=== PATIENT | male | born 1970 | race Caucasian/White ===

== ENCOUNTER 2019-10-06 09:04 | Day surgery (SDC) | payer OTHER ==
[~2019-10-06] VITALS: Ht 177.8 cm; Wt 87.9 kg
[~2019-10-06 09:04] MED LIST: FENO48TA13 PO; FISH1000 PO; IBUP800T OR; LIDOCAINE 2% INJ 100 MG/5 ML SDV (FOR ANES.) As Ordered ONE; MULTCAP PO; PROPOFOL 200 MG/20 ML VIAL As Ordered ONE; TRAM50TA2 OR; cholesterol med
[2019-10-06] MEDS: NS 1,000 ML IV SCH ×2 (09:29→09:55)
--- NOTE | 2019-10-06 10:32 | ROOR ---
Patient Name: Jesus Jordan Procedure Date: 10/06/2019 10:08 AM Date of : 1970 Age: 49 Room: [facility] Gender: Male Note Status: Finalized Procedure: Total Colonoscopy to cecum + Bx. Indications: Rectal bleeding, Change in bowel habits Providers: Jose Ramirez MD Referring MD: [facility]heron [facility], Admin., Inder Dillon Md Requesting Provider: Medicines: Monitored Anesthesia Care Complications: No immediate complications. Procedure: Pre-Anesthesia Assessment: - The heart rate, respiratory rate, oxygen saturations, blood pressure, adequacy of pulmonary ventilation, and response to care were monitored throughout the procedure. The Colonoscope was introduced through the anus and advanced to the cecum, identified by appendiceal orifice and ileocecal valve. The colonoscopy was performed without difficulty. The patient tolerated the procedure well. The quality of the bowel preparation was excellent. Findings: The perianal and digital rectal examinations were normal. A localized area of moderately erythematous mucosa was found in the rectum. Biopsies were taken with a cold forceps for histology. No other significant abnormalities were identified in a careful examination of the remainder of the colon. The exam was otherwise without abnormality on direct and retroflexion views. Impression: - Erythematous mucosa in the rectum. Biopsied. - The examination was otherwise normal on direct and retroflexion views. - The exam was otherwise normal to the cecum. Recommendation: - Patient has a contact number available for emergencies. The signs and symptoms of potential delayed complications were discussed with the patient. Return to normal activities tomorrow. Written discharge instructions were provided to the patient. - High fiber diet. - Discharge patient to home. - Use Canasa 1000 mg suppository 1 per rectum QHS. - Await pathology results. - Telephone GI clinic for pathology results in 1 week. - Repeat colonoscopy in 10 years for screening purposes. - Return to referring physician. - Return to my office in 6 weeks. - The findings and recommendations were discussed with the patient's family. Jose Ramirez MD Jose Ramirez MD 10/06/2019 10:31:38 AM Electronically signed by Jose Ramirez MD Number of Addenda: 0 Note Initiated On: 10/06/2019 10:08 AM Estimated Blood Loss: Estimated blood loss: none.
[2019-10-06 10:52] VITALS: BP 119/72
== END 2019-10-06 11:00 | disposition home or self-care (01) ==
LOC: M OPP 09:04
PROVIDERS: ATTEND Internal Medicine Gastroenterology
DX: K62.89 Other specified diseases of anus and rectum (principal); K62.5 Hemorrhage of anus and rectum; R19.4 Change in bowel habit; Z87.891 Personal history of nicotine dependence

== ENCOUNTER → 2020-04-16 | Outpatient (CLI) | payer OTHER ==
[~2020-04-16] MED LIST changes: +CRES40TA PO; -FENO48TA13 PO; +FENO48TA7 PO; -LIDOCAINE 2% INJ 100 MG/5 ML SDV (FOR ANES.) As Ordered ONE; +MESA1000 PR; -PROPOFOL 200 MG/20 ML VIAL As Ordered ONE
== END ==
LOC: M LABSMTC 13:45
PROVIDERS: ATTEND Anesthesiology
DX: Z03.818 Encounter for observation for suspected exposure to other biological agents ruled out (principal); Z11.59 Encounter for screening for other viral diseases
CPT/HCPCS: C9803; U0003

== ENCOUNTER 2020-04-19 06:44 | Day surgery (SDC) | payer OTHER ==
[~2020-04-19] VITALS: Ht 177.8 cm; Wt 89.4 kg
[~2020-04-19 06:44] MED LIST changes: +NS 1,000 ML IV ONE
[2020-04-19] MEDS ORDERED: propofoL 200 MG/20 ML VIAL As Ordered ONE (08:15)
--- NOTE | 2020-04-19 08:24 | ROOR ---
Patient Name: Jesus Jordan Procedure Date: 04/19/2020 8:00 AM Date of : 1970 Age: 49 Room: [facility] Gender: Male Note Status: Finalized Procedure: Colonoscopy to 30 cms + Biopsies Indications: Abnormal rectal exam Providers: Jose Ramirez MD Referring MD: MALIK GAN MD Requesting Provider: Medicines: Monitored Anesthesia Care Complications: No immediate complications. Procedure: Pre-Anesthesia Assessment: - The heart rate, respiratory rate, oxygen saturations, blood pressure, adequacy of pulmonary ventilation, and response to care were monitored throughout the procedure. The Colonoscope was introduced through the anus and advanced to the sigmoid colon for evaluation. This was the intended extent. The colonoscopy was performed without difficulty. The patient tolerated the procedure well. The quality of the bowel preparation was good. Findings: The perianal and digital rectal examinations were normal. Non-bleeding external internal hemorrhoids were found during retroflexion. The hemorrhoids were large and Grade II (internal hemorrhoids that prolapse but reduce spontaneously). Biopsies were taken with a cold forceps for histology. The exam was otherwise without abnormality. Impression: - Non-bleeding external internal hemorrhoids. Biopsied. - The examination was otherwise normal. - Congested, erythematous, inflamed and thickened folds of the mucosa in the rectum. Biopsied. Recommendation: - Patient has a contact number available for emergencies. The signs and symptoms of potential delayed complications were discussed with the patient. Return to normal activities tomorrow. Written discharge instructions were provided to the patient. - High fiber diet. - Discharge patient to home. - Continue present medications. - Await pathology results. - Repeat colonoscopy in 10 years for screening purposes. - Return to referring physician. - Telephone GI clinic for pathology results in 1 week. - The findings and recommendations were discussed with the patient's family. Jose Ramirez MD Jose Ramirez MD 04/19/2020 8:24:28 AM Electronically signed by Jose Ramirez MD Number of Addenda: 0 Note Initiated On: 04/19/2020 8:00 AM Estimated Blood Loss: Estimated blood loss: none.
[2020-04-19 08:35] VITALS: BP 118/82
== END 2020-04-19 08:45 | disposition home or self-care (01) ==
LOC: M OPP 06:44
PROVIDERS: ATTEND Internal Medicine Gastroenterology
DX: K64.4 Residual hemorrhoidal skin tags (principal); K64.1 Second degree hemorrhoids; K62.89 Other specified diseases of anus and rectum; Z79.899 Other long term (current) drug therapy; Z87.891 Personal history of nicotine dependence

== ENCOUNTER → 2022-05-17 | Outpatient (CLI) | payer OTHER ==
[~2022-05-17] MED LIST changes: -FENO48TA7 PO; +FENO48TA8 PO; -NS 1,000 ML IV ONE
== END ==
LOC: M SLEEP 20:00
PROVIDERS: ATTEND Physician Assistant
DX: G47.33 Obstructive sleep apnea (adult) (pediatric) (principal)